=== PATIENT | male | born 1955 | race African-American/Black ===

== ENCOUNTER 2016-06-01 11:52 | Emergency (ER) | payer MEDICARE, OTHER | END 2016-06-01 15:03 | disposition home or self-care (01) | LOC: ER 11:52 | DX: S20.211A Contusion of right front wall of thorax, initial encounter (principal); S00.81XA Abrasion of other part of head, initial encounter; R42 Dizziness and giddiness; I10 Essential (primary) hypertension; Z79.899 Other long term (current) drug therapy; Z87.891 Personal history of nicotine dependence; W19.XXXA Unspecified fall, initial encounter; Y92.009 Unspecified place in unspecified non-institutional (private) residence as the place of occurrence of the external cause ==